=== PATIENT | male | born 1940 | race Caucasian/White ===

== ENCOUNTER 2017-01-04 10:30 | Emergency (ER) | payer MEDICARE ==
[2017-01-04 12:46] VITALS: BP 186/76
--- NOTE | 2017-01-04 12:49 | UC ---
Ear Complaint HPI - HPI Summary HPI Summary: 76 YEAR OLD MALE PRESENTS WITH COMPLAINS OF LEFT EAR CERUMEN IMPACTION. - History of Current Complaint Chief Complaint: UCEar Stated Complaint: PLUGGED EAR Time Seen by Provider: 01/04/17 12:48 Hx Obtained From: Patient Onset/Duration: Gradual Onset Severity Initially: Moderate Severity Currently: Moderate - Allergies/Home Medications Allergies/Adverse Reactions: Allergies Allergy/AdvReac Type Severity Reaction Status Date / Time No Known Allergies Allergy Verified 01/04/17 12:39 PMH/Surg Hx/FS Hx/Imm Hx - Surgical History Surgical History: Yes Surgery Procedure, Year, and Place: caratid artery "cleaning - Social History Alcohol Use: Weekly Alcohol Amount: one a week Substance Use Type: None Smoking Status (MU): Former Smoker - Immunization History Most Recent Influenza Vaccination: none Review of Systems Constitutional: Negative Skin: Negative Eyes: Negative ENT: Ear Ache Respiratory: Negative Cardiovascular: Negative Gastrointestinal: Negative Genitourinary: Negative Motor: Negative Neurovascular: Negative Musculoskeletal: Negative Neurological: Negative Psychological: Negative All Other Systems Reviewed And Are Negative: Yes Physical Exam Triage Information Reviewed: Yes Appearance: Well-Appearing Vital Signs: Initial Vital Signs Temp 36.4 C 01/04/17 12:40 Pulse 65 01/04/17 12:40 Resp 18 01/04/17 12:40 BP 186/76 01/04/17 12:40 Pulse Ox 96 01/04/17 12:40 Vital Signs Reviewed: Yes Eye Exam: Normal ENT: Positive: Other: - CERUMEN IMPACTION LEFT EAR Dental Exam: Normal Neck exam: Normal Neck: Positive: 1 Respiratory Exam: Normal Cardiovascular Exam: Normal Abdominal Exam: Normal Musculoskeletal Exam: Normal Neurological Exam: Normal Psychological Exam: Normal Skin Exam: Normal Ear Complaint Course/Dx - Differential Dx/Diagnosis Provider Diagnoses: CERUMEN IMPACTION LEFT EAR Discharge - Discharge Plan Condition: Stable Disposition: HOME Prescriptions: Neomyc/Polym/HC 1% OTIC SUSP* [Cortisporin Otic Susp 1%*] 4 drop LEFT EAR QID PRN #1 btl PRN Reason: Pain Patient Education Materials: Cerumen Impaction (ED) Referrals: No Primary Care Phys,NOPCP [Primary Care Provider] -
== END 2017-01-04 13:20 | disposition home or self-care (01) ==
LOC: UCEAST 10:30
DX: H61.22 Impacted cerumen, left ear (principal)
CPT/HCPCS: 99203; G0463